=== PATIENT | male | born 1960 | race Caucasian/White ===

== ENCOUNTER 2021-12-19 12:49 | Emergency (ER) | payer OTHER ==
[~2021-12-19] VITALS: Ht 180.3 cm; Wt 83.9 kg
[2021-12-19] MEDS ORDERED: ATORVASTATIN CA20 MG PO (13:33)
[2021-12-19] MEDS ORDERED: LORAZEPAM0.5 MG PO (13:33)
[2021-12-19] MEDS ORDERED: COZAAR25 MG (13:34)
[2021-12-19] MEDS ORDERED: XOPENEX0.63 MG/3 IH (17:12)
[2021-12-19] MEDS ORDERED: MEDROLPACK PO (17:12)
[2021-12-19] MEDS ORDERED: TUSNEL LIQUID178 ML PO (17:12)
== END 2021-12-19 17:43 | disposition home or self-care (01) ==
LOC: ER 12:49
DX: J45.901 Unspecified asthma with (acute) exacerbation (principal); Z20.822 Contact with and (suspected) exposure to COVID-19